=== PATIENT | female | born 1980 | race American Indian/Alaskan Native ===

== ENCOUNTER 2018-09-17 17:49 | Emergency (ER) | payer SELFPAY ==
--- NOTE | 2018-09-17 18:07 | Emergency Department Report ---
ED ENT HPI - General Chief complaint: Sore Throat Stated complaint: ALLERGIC REACTION Time Seen by Provider: 09/17/18 18:06 Source: patient Mode of arrival: Ambulatory Limitations: No Limitations - History of Present Illness Initial comments: 38 -[place] female comes in complaining of allergies and sore throat since 2 PM. Patient reports that she was exposed to grass. Patient reports she took her breathing treatments Claritin and Zyrtec's. Patient also reports his been anxious and she felt she was having allergic reaction. She also complains of hands cramping up. Patient has no fevers she does admit to chills. Patient has a past medical history of anxiety and depression. MD complaint: sore throat -: This afternoon Time: 14:00 Consistency: intermittent Associated Symptoms: denies: fever - Related Data Previous Rx's Medication Instructions Recorded Last Taken Type Ibuprofen [Motrin 800 MG tab] 800 mg PO Q8HR PRN #30 tablet 09/17/18 Unknown Rx hydrOXYzine HCL [Atarax] 25 mg PO Q6HR #12 tablet 09/17/18 Unknown Rx Allergies Allergy/AdvReac Type Severity Reaction Status Date / Time No Known Allergies Allergy Unverified 09/17/18 17:54 ED Dental HPI - General Chief complaint: Sore Throat Stated complaint: ALLERGIC REACTION Time Seen by Provider: 09/17/18 18:06 Source: patient Mode of arrival: Ambulatory Limitations: No Limitations - Related Data Previous Rx's Medication Instructions Recorded Last Taken Type Ibuprofen [Motrin 800 MG tab] 800 mg PO Q8HR PRN #30 tablet 09/17/18 Unknown Rx hydrOXYzine HCL [Atarax] 25 mg PO Q6HR #12 tablet 09/17/18 Unknown Rx Allergies Allergy/AdvReac Type Severity Reaction Status Date / Time No Known Allergies Allergy Unverified 09/17/18 17:54 ED Review of Systems ROS: Stated complaint: ALLERGIC REACTION Other details as noted in HPI ED Past Medical Hx - Past Medical History Hx Hypertension: Yes Additional medical history: Anxiety, depression - Surgical History Past Surgical History?: No - Social History Smoking Status: Current Every Day Smoker Substance Use Type: None - Medications Home Medications: Home Medications Medication Instructions Recorded Confirmed Last Taken Type Ibuprofen [Motrin 800 MG tab] 800 mg PO Q8HR PRN #30 tablet 09/17/18 Unknown Rx hydrOXYzine HCL [Atarax] 25 mg PO Q6HR #12 tablet 09/17/18 Unknown Rx ED Physical Exam - General Limitations: No Limitations General appearance: alert, in no apparent distress - Head Head exam: Present: atraumatic, normocephalic - Eye Eye exam: Present: normal appearance - ENT ENT exam: Present: mucous membranes moist - Neck Neck exam: Present: normal inspection - Respiratory Respiratory exam: Present: normal lung sounds bilaterally. Absent: respiratory distress - Cardiovascular Cardiovascular Exam: Present: regular rate, normal rhythm. Absent: systolic murmur, diastolic murmur, rubs, gallop - GI/Abdominal GI/Abdominal exam: Present: soft, normal bowel sounds - Extremities Exam Extremities exam: Present: normal inspection - Back Exam Back exam: Present: normal inspection - Neurological Exam Neurological exam: Present: alert, oriented X3 - Psychiatric Psychiatric exam: Present: normal affect, normal mood - Skin Skin exam: Present: warm, dry, intact, normal color. Absent: rash ED Course Vital Signs 09/17/18 09/17/18 09/17/18 17:51 21:35 22:21 Temperature 98.1 F 99.1 F Pulse Rate 85 96 H 85 Respiratory 22 16 18 Rate Blood Pressure 149/85 Blood Pressure 143/96 148/95 [Left] O2 Sat by Pulse 98 97 98 Oximetry ED Medical Decision Making - Lab Data Result diagrams: 09/17/18 20:18 09/17/18 20:18 Critical care attestation.: If time is entered above; I have spent that time in minutes in the direct care of this critically ill patient, excluding procedure time. ED Disposition Clinical Impression: Sorethroat Allergic reaction Qualifiers: Encounter type: initial encounter Qualified Code(s): T78.40XA - Allergy, unspecified, initial encounter Disposition: DC-01 TO HOME OR SELFCARE Is pt being admited?: No Does the pt Need Aspirin: No Condition: Stable Instructions: Allergies (ED) Additional Instructions: Please take medication as needed follow-up with her primary care provider for symptoms persist or gets worse. Prescriptions: hydrOXYzine HCL [Atarax] 25 mg PO Q6HR #12 tablet Ibuprofen [Motrin 800 MG tab] 800 mg PO Q8HR PRN #30 tablet PRN Reason: Pain , Severe (7-10) Referrals: [facility] [Provider Group] - 3-5 Days
[2018-09-17] MEDS ORDERED: ZOFRAN ONE (18:14)
[2018-09-17] MEDS ORDERED: ZOFRAN IM ONE (18:15)
[2018-09-17] MEDS ORDERED: MOTRIN PO ONE (18:59)
[2018-09-17] MEDS ORDERED: ATARAX PO ONE (19:00)
[2018-09-17 20:29] LABS: Bilirubin,Urine NEG (Negative); Blood,Urine SM (Negative); Color,Urine Yellow (Yellow); Mucus,Urine 1+ /HPF
[2018-09-17 20:31] LABS: Hematocrit 41.1 % (30.3-42.9); Hemoglobin 13.6 gm/dl (10.1-14.3); Mean Corpuscular HGB Conc 33 % (30-34); Mean Corpuscular Hemoglobin 33 pg (28-32); Mean Corpuscular Volume 99 fl (79-97); Platelet Count 247 K/mm3 (140-440); Red Blood Count 4.17 M/mm3 (3.65-5.03); Red Cell Distribution Width 14.4 % (13.2-15.2)
[2018-09-17 20:33] LABS: HCG Qualitative,Urine Negative (Negative)
[2018-09-17 20:45] LABS: Alanine Aminotransferase 13 units/L (7-56); Albumin 3.9 g/dL (3.9-5); BUN/Creatinine Ratio 10; Blood Urea Nitrogen 10 mg/dL (7-17); Calcium 8.6 mg/dL (8.4-10.2); Hemolysis Index 6
[2018-09-17 22:19] LABS: Band Neutrophils # (Manual) 0.5 K/mm3; Basophils % (Manual) 0 % (0.0-1.8); Eosinophils % (Manual) 0 % (0.0-4.3); Platelet Estimate Consistent w Auto; Total Cells Counted 100
[2018-09-17 22:23] VITALS: BP 148/95
== END 2018-09-17 22:21 | disposition home or self-care (01) ==
LOC: ED 17:49
DX: T78.40XA Allergy, unspecified, initial encounter (principal); J02.9 Acute pharyngitis, unspecified; I10 Essential (primary) hypertension; F17.200 Nicotine dependence, unspecified, uncomplicated; F41.9 Anxiety disorder, unspecified; F32.9 Major depressive disorder, single episode, unspecified
CPT/HCPCS: 36415; 80053; 81001; 81025; 85007; 85025; 87116; 87430; 96372; 99283; J2405

== ENCOUNTER 2018-09-19 04:01 | Emergency (ER) | payer SELFPAY ==
[2018-09-19] MEDS ORDERED: ZOFRAN ODT ONE (05:10)
[2018-09-19] MEDS ORDERED: BENADRYL ONE (05:23)
[2018-09-19] MEDS ORDERED: DECADRON ONE (05:23)
[2018-09-19] MEDS ORDERED: REGLAN ONE (05:23)
[2018-09-19] MEDS ORDERED: REGLAN IV ONE (05:33)
[2018-09-19] MEDS ORDERED: BENADRYL IM ONE (05:33)
[2018-09-19] MEDS ORDERED: DECADRON IM ONE (05:34)
== END 2018-09-19 05:40 | disposition left against medical advice (07) ==
LOC: ED 04:01
DX: R21 Rash and other nonspecific skin eruption (principal); Z53.21 Procedure and treatment not carried out due to patient leaving prior to being seen by health care provider
CPT/HCPCS: J1100; J1200; J2765; Q0162